=== PATIENT | female | born 2000 | race African-American/Black ===

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

== ENCOUNTER 2019-08-21 17:21 | Emergency (ER) | payer MEDICAID ==
[~2019-08-21] VITALS: Ht 157.5 cm; Wt 52.2 kg
[2019-08-21 18:34] LABS: Basophils # (auto) 0 uL; Basophils % (auto) 0.4 % (0.0-2.0); Eosinophils # (auto) 0.1 uL; Eosinophils % (auto) 0.8 % (0.0-7.0); Hematocrit 31.5 % (36.0-46.0); Hemoglobin 10.5 g/dL (12.2-16.2); Lymphocytes # (auto) 1.4 uL; Lymphocytes % (auto) 20.7 % (10.0-50.0); Mean Corpuscular Hemoglobin 28.3 pg (28.0-32.0); Mean Corpuscular Hgb Conc. 33.3 g/dL (32.0-36.0); Mean Corpuscular Volume 84.8 fL (80.0-100.0); Monocytes # (auto) 0.7 uL; Monocytes % (auto) 10.2 % (0.0-12.0); Neutrophils # (auto) 4.6 uL; Neutrophils % (auto) 67.9 % (37.0-80.0); Nucleated Red Blood Cells % 0.1 %; Platelet Count (auto) 308 10^3/uL (140-450); Red Blood Cells 3.72 10^6/uL (4.0-5.20); Red Cell Distribution Width 15.2 % (11.8-14.3); White Blood Cell 6.8 10^3/uL (4.4-10.8)
[2019-08-21 20:22] VITALS: BP 121/69
== END 2019-08-21 20:22 | disposition home or self-care (01) ==
LOC: ER 17:28
DX: O20.0 Threatened abortion (principal); Z3A.19 19 weeks gestation of pregnancy
CPT/HCPCS: 36415; 76805; 84702; 85025

== ENCOUNTER 2019-09-16 17:31 | Observation (INO) | payer MEDICAID ==
[~2019-09-16] VITALS: Ht 157.5 cm; Wt 54.0 kg
[2019-09-16 18:25] VITALS: BP 100/53
[2019-09-16 19:25] LABS: Basophils # (auto) 0 uL; Basophils % (auto) 0.5 % (0.0-2.0); Eosinophils # (auto) 0.1 uL; Eosinophils % (auto) 1.4 % (0.0-7.0); Hematocrit 34.6 % (36.0-46.0); Hemoglobin 11.3 g/dL (12.2-16.2); Lymphocytes # (auto) 1.7 uL; Lymphocytes % (auto) 20.7 % (10.0-50.0); Mean Corpuscular Hemoglobin 28.1 pg (28.0-32.0); Mean Corpuscular Hgb Conc. 32.7 g/dL (32.0-36.0); Mean Corpuscular Volume 85.8 fL (80.0-100.0); Monocytes # (auto) 0.7 uL; Monocytes % (auto) 8.4 % (0.0-12.0); Neutrophils # (auto) 5.7 uL; Nucleated Red Blood Cells % 0.1 %; Platelet Count (auto) 292 10^3/uL (140-450); Red Blood Cells 4.03 10^6/uL (4.0-5.20); Red Cell Distribution Width 15.2 % (11.8-14.3); White Blood Cell 8.3 10^3/uL (4.4-10.8)
[2019-09-16 19:32] LABS: Urine Bacteria FEW /hpf (None Seen); Urine Blood Negative /uL (Negative); Urine Mucus FEW (None Seen); Urine Specific Gravity 1.023 (1.001-1.035); Urine WBC 16 /hpf (0 - 5)
[2019-09-16 19:41] LABS: Albumin 2.6 g/dL (3.4-5.0); BUN/Creatinine Ratio 16.7; Potassium 3.3 mmol/L (3.5-5.1)
[2019-09-16 19:44] LABS: Bilirubin, Total 0.3 mg/dL (0.2-1.0); Total Protein 7.2 g/dL (6.4-8.2)
[2019-09-16 19:47] LABS: Alcohol, Urine < 3.0 mg/dL (0-5); Amphetamine Screen, Urine NEGATIVE (NEGATIVE); Barbiturate Scree,Urine NEGATIVE (NEGATIVE); Benzodiazephine Screen, Urine NEGATIVE (NEGATIVE); Cannabinoid Screen, Urine NEGATIVE (NEGATIVE); Cocaine Screen, Urine NEGATIVE (NEGATIVE); Opiate Scree,Urine NEGATIVE (NEGATIVE); Phencyclidine Screen, Urine NEGATIVE (NEGATIVE)
[2019-09-16] MEDS ORDERED: BETAMETHASONE ACET (6MG/ML) 5ML VIAL IM ONE (20:15)
== END 2019-09-16 20:40 | disposition home or self-care (01) | DRG 566 ==
LOC: ER 17:31 → LDRP 18:48
PROVIDERS: ADMIT Obstetrics & Gynecology; ATTEND Obstetrics & Gynecology
DX: O23.42 Unspecified infection of urinary tract in pregnancy, second trimester (principal); O46.92 Antepartum hemorrhage, unspecified, second trimester; Z3A.23 23 weeks gestation of pregnancy
CPT/HCPCS: 36415; 59025; 76805; 80053; 80307; 81001; 81002; 84702; 85025; 87086; 99284; G0378

== ENCOUNTER 2020-03-13 12:23 | Emergency (ER) | payer MEDICAID ==
[~2020-03-13] VITALS: Ht 157.5 cm; Wt 58.1 kg
[2020-03-13 12:35] VITALS: BP 108/100
[2020-03-13 14:07] LABS: Urine Bacteria FEW /hpf (None Seen); Urine Mucus FEW (None Seen); Urine WBC 78 /hpf (0 - 5)
[2020-03-13 14:08] LABS: Urine Blood Negative /uL (Negative); Urine Specific Gravity 1.027 (1.001-1.035)
[2020-03-13] MEDS ORDERED: AZITHROMYCIN 250 MG TAB PO ONE (14:15)
[2020-03-13] MEDS ORDERED: cefTRIAXone SOD 500 MG VL IM ONE (14:15)
== END 2020-03-13 14:39 | disposition home or self-care (01) ==
LOC: ER 12:23
DX: N39.0 Urinary tract infection, site not specified (principal); A64 Unspecified sexually transmitted disease
CPT/HCPCS: 81001; 81025; 96372; 99283; J0696

== ENCOUNTER 2023-06-19 08:17 | Emergency (ER) | payer MEDICAID ==
[~2023-06-19] VITALS: Ht 160 cm; Wt 76.5 kg
[~2023-06-19 08:17] MED LIST: SUMA50TA2 PO
[2023-06-19 09:13] VITALS: BP 105/75; RESP 20; TEMP 97; O2SAT 100
[2023-06-19] MEDS ORDERED: KETOROLAC TROMETH 60MG/2ML VIAL IM ONE (10:00)
[2023-06-19 10:13] VITALS: PULSE 68
[2023-06-19 10:32] LABS: Rapid Influenza A Negative (Negative); Rapid Influenza B Negative (Negative)
[2023-06-19 11:10] LABS: COVID19 ANTIGEN SOFIA FIA NEGATIVE (NEGATIVE)
[2023-06-19] MEDS ORDERED: IBUP-1455 PO (11:21)
== END 2023-06-19 11:22 | disposition home or self-care (01) ==
LOC: ER 08:17
DX: M94.0 Chondrocostal junction syndrome [Tietze] (principal); Z20.822 Contact with and (suspected) exposure to COVID-19
CPT/HCPCS: 36415; 71046; 87426; 87804; 93005; 96372; 99285; J1885

== ENCOUNTER 2024-04-13 03:05 | Emergency (ER) | payer MEDICAID ==
[~2024-04-13] VITALS: Ht 160 cm; Wt 81.2 kg
[~2024-04-13 03:05] MED LIST changes: +IBUP-1455 PO
[2024-04-13 03:13] VITALS: BP 129/85; PULSE 108; RESP 18; TEMP 97.9; O2SAT 98
== END 2024-04-13 04:08 | disposition home or self-care (01) ==
LOC: ER 03:05
DX: S30.814A Abrasion of vagina and vulva, initial encounter (principal); Z79.1 Long term (current) use of non-steroidal anti-inflammatories (NSAID); Z79.899 Other long term (current) drug therapy; X58.XXXA Exposure to other specified factors, initial encounter; Y93.89 Activity, other specified; Y92.89 Other specified places as the place of occurrence of the external cause; Y99.8 Other external cause status